=== PATIENT | male | born 1995 | race Caucasian/White ===

== ENCOUNTER 2016-08-07 16:55 | Emergency (ER) | payer OTHER ==
[~2016-08-07] VITALS: Ht 185.4 cm; Wt 83.9 kg
[2016-08-07 17:03] VITALS: Ht 185.4 cm; Wt 83.9 kg
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
--- NOTE | 2016-08-07 18:22 | DIAGNOSTIC IMAGING REPORT ---
LUMBAR SPINE 5 VIEWS HISTORY: Trauma low back pain COMPARISON: None. FINDINGS: There is no fracture. No subluxation. Disc spaces are preserved. Increased fecal load throughout the colon. Moderate fecal impaction IMPRESSION: 1. Negative lumbar spine. 2. Increased fecal load throughout the colon. 3. Moderate fecal impaction Electronically signed by: Jeff Alcantar M.D. 08/07/2016 6:20 PM Dictated Date/Time: 08/07/2016 6:20 PM
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
[2016-08-07 18:54] VITALS: BP 122/72; PULSE 77; TEMP 36.8; O2SAT 98
== END 2016-08-07 18:56 | disposition home or self-care (01) ==
LOC: C.EDB 16:57 → C.EDD 18:56
DX: S16.1XXA Strain of muscle, fascia and tendon at neck level, initial encounter (principal); K59.00 Constipation, unspecified; V89.2XXA Person injured in unspecified motor-vehicle accident, traffic, initial encounter